=== PATIENT | female | born 1960 | race Caucasian/White ===

== ENCOUNTER → 2017-08-08 | Outpatient (CLI) | payer OTHER ==
[~2017-08-08] MED LIST: CALC500C70 PO
== END | disposition home or self-care (01) ==
LOC: C.RDSM 12:28
PROVIDERS: ATTEND Orthopaedic Surgery Sports Medicine
DX: M25.511 Pain in right shoulder (principal)

== ENCOUNTER → 2017-09-12 | Outpatient (CLI) | payer OTHER ==
[~2017-09-12] MED LIST changes: +AMOX500T PO; +NIAC500T11 PO; +PREDNISONE
[2017-09-12 12:29] LABS: HEMATOCRIT 39.7 % (37-47); MEAN CELL VOLUME 84.6 fL (80-100); MEAN CORPUSCULAR HEMOGLOBIN 28.6 pg (25-34); MEAN CORPUSCULAR HGB CONC 33.8 g/dl (32-36); MEAN PLATELET VOLUME 9.7 fL (7.4-10.4); PLATELET COUNT 270 K/uL (130-400); RED BLOOD COUNT 4.69 M/uL (4.2-5.4); WHITE BLOOD COUNT 5.24 K/uL (4.8-10.8)
== END | disposition home or self-care (01) ==
LOC: C.CPL 11:39
PROVIDERS: ATTEND Orthopaedic Surgery Sports Medicine
DX: Z01.818 Encounter for other preprocedural examination (principal)

== ENCOUNTER 2017-10-03 06:39 | Day surgery (SDC) | payer OTHER ==
--- NOTE | 2017-09-12 12:42 | History and Physical ---
History & Physical Date Sep 12, 2017. Chief Complaint right shoulder pain History of Present Illness The patient is a 57 year old female with complaints of right shoulder pain that has failed conservative treatment. Reports pain making it difficult to perform certain ADL's and elective activity. No new injury or fall since initial evaluation. Denies numbness or tingling in the right upper extremity. Past Medical/Surgical History Past medical history: 1. No currently treatable pathology Past surgical history: 1. x 3 Family history: 1. Non-contributory Social History: 1. Lives at home with family in a safe environment, denies ETOH, tobacco, illegal drug use Additional History Hepatic Disease: No Endocrine Disorder: No Kidney Disease: No Hypertension: No Heart Disease: No Bleeding Tendencies: No Infectious Diseases: No Other: Review of systems: Denies headache, chest pain, shortness of breath, fevers, chills night sweats. Reports being on oral antibiotics regarding sinusitis, which will be compete prior her surgical date. Allergies Coded Allergies: No Known Allergies (Unverified , 10/16/15) Home Medications Scheduled Calcium/Vitamin D (Os-Hay 500 Plus D), 1 TAB PO QPM Physical Examination Skin: warm/dry, no rash Eyes: normal inspection ENT: normal ENT inspection Head: normocephalic, atraumatic Respiratory/Chest: lungs clear, normal breath sounds, no respiratory distress Cardiovascular: regular rate, rhythm, no edema, no murmur Abdomen / GI: normal bowel sounds, non tender Extremities: normal inspection, + pertinent finding (pain with range of motion greater than 120 degrees of elevation, 170 degrees max forward elevation and abduction, + Msocoso test, tender LHB, pain with Juanita's but no weakness, AC joint non-tender, External rotation 45 degrees, elbow atraumatic ) Neurologic/Psych: no motor/sensory deficits, alert, oriented x 3 Diagnosis Right shoulder calcific tendinosis Plan of Treatment Debby will undergo a Right shoulder arthroscopy, possible rotator cuff and labral repairs versus debridement, subacromial decompression, exam under anesthesia by Dr. White from [facility] on 10/03/17 at the [facility]. She was given Percocet for post-op pain. Pre-op labs will include EKG and CBC at the outpatient lab [facility]. PT begins 2 days after surgery and will see Dr. White 2 weeks after surgery for suture removal. Any other questions please call [facility] at [phone], thank you.
[2017-09-14 16:14] VITALS: BMI 27.0
[2017-09-14 16:20] VITALS: Ht 167.6 cm; Wt 76.4 kg
[~2017-10-03] VITALS: Ht 167.6 cm; Wt 76.4 kg
[~2017-10-03 06:39] MED LIST changes: +CEFAZOLIN 1000MG IV PUSH 5 ML IV SCH; +LACTATED RINGER'S 1000ML 1,000 ML IV SCH; +LACTATED RINGER'S 1000ML IV SCH
[2017-10-03] MEDS ORDERED: MIDAZOLAM HCL 1 MG/ML 2ML VIAL ONE (06:50)
[2017-10-03] MEDS ORDERED: PROPOFOL IV EMULSION 10 MG/ML 20 ML VIAL IV ONE (06:50)
[2017-10-03] MEDS ORDERED: FENTANYL CITRATE INJ 50 MCG/1 ML 2 ML VIAL ONE (06:50)
[2017-10-03] MEDS ORDERED: DEXAMETHASONE SOD INJ 4 MG/ML VIAL ONE (06:51)
[2017-10-03] MEDS ORDERED: ONDANSETRON INJ 2 MG/ML 2 ML VIAL ONE (06:51)
[2017-10-03] MEDS ORDERED: LIDOCAINE HCL 2% 2 ML VIAL (20MG/ML) ONE (06:51)
[2017-10-03] MEDS ORDERED: BUPIVACAINE 0.25% 30 ML VIAL ONE (07:20)
[2017-10-03] MEDS ORDERED: ROPIVACAINE 0.5% 5 MG/ML 30 ML VIAL ONE (07:20)
[2017-10-03] MEDS ORDERED: CLONIDINE HCL 100 MCG/ML SYRINGE ONE (07:21)
[2017-10-03] MEDS ORDERED: EpINEphrine INJ 1MG/ML AMP 1 MG/ML AMP ONE (07:21)
[2017-10-03 07:22] VITALS: BP 124/89; PULSE 95; TEMP 36.8; O2SAT 97
[2017-10-03] MEDS ORDERED: LIDOCAINE/EPINEPHRINE 1% 20 ML VIAL ONE (07:33)
[2017-10-03] MEDS ORDERED: SODIUM CHLORIDE 0.9% PF 50 ML VIAL ONE (07:33)
[2017-10-03] MEDS ORDERED: BUPIVACAINE 0.5 % 5 MG/1 ML MPF 30ML VIAL ONE (07:34)
--- NOTE | 2017-10-03 07:46 | History & Physical Bridge Note ---
H&P Re-Evaluation Bridge Note: I have examined the patient, reviewed the History & Physical and in the interval since the performance of the History & Physical I have noted the following changes of clinical significance: No changes noted
[2017-10-03] MEDS ORDERED: LABETALOL HCL IV 5 MG/ML 20ML IV PRN (08:00)
[2017-10-03] MEDS ORDERED: ONDANSETRON INJ 2 MG/ML 2 ML VIAL IV PRN ×2 (08:00→11:45)
[2017-10-03] MEDS ORDERED: PHENYLEPHRINE 100MCG/ML 5ML SYR IV PRN (08:00)
[2017-10-03] MEDS ORDERED: EpHEDrine SULFATE INJ 50 MG/ML AMP IV PRN (08:00)
[2017-10-03] MEDS ORDERED: MEPERIDINE HCL 25 MG/ML CARP IV PRN (08:00)
[2017-10-03] MEDS ORDERED: NALOXONE HCL 0.4 MG/1 ML VIAL/CARP IV PRN (08:00)
[2017-10-03] MEDS ORDERED: FLUMAZENIL 0.1 MG/1 ML 10 ML VIAL IV PRN (08:00)
[2017-10-03] MEDS ORDERED: FENTANYL CITRATE INJ 50 MCG/1 ML 2 ML VIAL IV PRN (08:00)
[2017-10-03] MEDS ORDERED: ATROPINE SULFATE 0.1 MG/ML 5ML SYR IV PRN (08:00)
[2017-10-03] MEDS ORDERED: HYDROmorphone INJ 2 MG/ML SYR/VIAL IV PRN (08:00)
[2017-10-03] MEDS ORDERED: EpHEDrine SULFATE INJ 50 MG/ML AMP ONE (08:58)
[2017-10-03] MEDS: EpINEphrine HCL INJ 1 MG/ML 5ML SYRINGE ONE ×2 (09:53→11:04)
[2017-10-03] MEDS ORDERED: EpINEphrine HCL INJ 1 MG/ML 5ML SYRINGE ONE (10:39)
[2017-10-03] MEDS ORDERED: KETOROLAC TROMETHAMINE 30 MG/ML VIAL ONE (11:29)
--- NOTE | 2017-10-03 11:32 | [facility] Post Operative Brief Note ---
Immediate Operative Summary Operative Date Oct 03, 2017. Pre-Operative Diagnosis Right Shoulder Calcific Tendonosis Post-Operative Diagnosis Same as preop, rotator cuff tear, tendinosis of the long head of the biceps, subacromial bursitis, labral degeneration Procedure(s) Performed 1)Right shoulder arthroscopy, rotator cuff repair. 2)extensive debridement. 3)long head biceps tenotomy 4)exam under anesthesia Surgeon Dr. White Equipment Records Supervisor Surgeon(s) Saurav Randall PA-C Estimated Blood Loss 5 Findings Rotator cuff tear, subacromial bursitis, tendinosis of the long head of the biceps, calcific tendinosis, labral degeneration Fluids (cc crystalloids) 1200 Specimens None per Surgeon Drains none Complication(s) None Disposition Recovery Room / PACU
[2017-10-03] MEDS ORDERED: OXYCODONE/ACETAMINOPHEN 5-325 TAB PO PRN (11:45)
[2017-10-03] MEDS ORDERED: MoRPHine SULFATE 2 MG/ML CARP IV PRN (11:45)
[2017-10-03] MEDS ORDERED: MoRPHine SULFATE 4 MG/ML 1 ML CARP\\VIAL IV PRN (11:45)
--- NOTE | 2017-10-03 11:55 | Discharge Instructions ---
Discharge Instructions Date of Service Oct 03, 2017. Admission Reason for Admission: Right Shoulder Calcific Tendonosis Discharge Discharge Diagnosis / Problem: Right shoulder arthroscopy, extensive debridement, biceps tenotomy, rotator Discharge Goals Goal(s): Decrease discomfort, Improve function, Increase independence, Improve disease control Activity Recommendations Activity Limitations: as noted below Lifting Limitations: until after follow-up appointment Exercise/Sports Limitations: until after follow-up appointment Shower/Bathe: keep incision dry Driving or Machine Use: No driving until cleared by Dr. White . Instructions / Follow-Up Instructions / Follow-Up The following are instructions to follow after "Shoulder Surgery" including, Acromioplasty and Rotator Cuff Repair ACTIVITY RECOMMENDATIONS: * Minimize activity after surgery. * No excessive walking, jogging, sports or laboring. * Return to activity is individualized depending on the patient and type of surgery. * Driving is not permitted until at least your first post operative visit. Please ask your doctor when it is safe to resume driving. * Expect increased discomfort with increased activity. Continue to ice the shoulder as needed. SCHOOL/WORK RECOMMENDATIONS: * You may return to sedentary work or school when you are feeling more comfortable. This is usually 3-7 days after surgery. MEDICATIONS: * You will have a prescription for pain medication after surgery. * Use the pain medication for severe pain and the anti-inflammatory for less severe pain. Once the pain medication has run out, try to use the anti-inflammatory medication. If this is not effective, contact the office for assistance. * The pain medication may cause nausea, constipation and drowsiness. You should see how they affect you before driving or similar activity. * The anti-inflammatory medication may cause stomach upset and bleeding. If this occurs let your doctor know immediately . * Take a stool softener like Colace or a laxative like Senokot to prevent constipation. DIET: * Resume previous diet. SPECIAL CARE: ICE: You have the option of gel packs or ice bags. * Do not apply ice directly to the skin. Use a thin dressing or gal shirt between the skin and ice bag. Apply ice for 20-30 minutes and repeat every 2-4 hours. This is especially important for the first 7-10 days after surgery. Once the pain improves, use ice as needed. ELEVATION: * You may be more comfortable sleeping in an upright position. Use the sling to elevate your arm. DRESSING: * Your dressing will be changed at your first therapy appointment approximately 4-5 days after surgery. Band-aids, tape strips or gauze may be applied. You may then change your dressing daily. * Reapply dressing followed by the sling. * Always wash your hands prior to touching the incision area. * Once the stitches are removed, you may leave the wound open to air or cover with gauze. * Expect some bloody drainage for the first few days after surgery. * Leave the tape strips, if present, in place for 5-7 days. * Band-aids and gauze may be changed daily. * There may be a gauze pad in your armpit area. This can be changed daily or replaced by a dry washcloth. SLING/BRACE: * You will need to use a sling or brace after surgery. The length of time the sling is used is dependent upon the type of surgery performed. * Arthroscopic Acromioplasty requires use of the sling for 2-4 weeks for comfort. * Rotator Cuff Repairs require use of the sling for a longer period of time. Please check with your doctor prior to discontinuing the sling. BATHING: * You may shower or sponge-bathe immediately after surgery. The post operative shoulder dressing is mostly water-tight. You may shower right over this dressing, but be reasonably careful not to get the gauze or incision wet. * Once the dressing has been changed on the fourth or fifth day after surgery, you may shower and get the incision wet. * Wash with regular soap and water. * Do not bathe (submerge the incision), soak, swim or use a hot tub until the incision is completely healed over with normal skin and the doctor has given the OK to proceed. * There is no need to apply any ointments, powders or salves to your incision. * Do not apply alcohol or hydrogen peroxide directly to the incision. * Diluted peroxide (50:50 mixture with sterile saline) may be used to clean dried blood from around the incision area. THERAPY: * You will begin therapy four or five days after surgery. * Organized therapy with the therapist is important for the first 2-4 months after surgery depending on the type of procedure. During that time you will attend therapy 1-3 times per week. * You will also need to do daily exercises for range of motion and strength as instructed. * Patients having Rotator Cuff Surgery are not allowed to actively lift their arms until 4-6 weeks after surgery. * Please check with your doctor regarding appropriate motion restrictions. FOLLOW UP VISIT: * If not already scheduled, please call the office at to schedule a follow-up appointment for 10 days after surgery and monthly thereafter. Current Hospital Diet Patient's current hospital diet: Regular Diet Discharge Diet Recommended Diet: Regular Diet Procedures Procedures Performed: 1)Right shoulder arthroscopy, rotator cuff repair. 2)extensive debridement. 3)long head biceps tenotomy 4)exam under anesthesia Pending Studies Studies pending at discharge: no Medical Emergencies . Who to Call and When: Medical Emergencies: If at any time you feel your situation is an emergency, please call 911 immediately. . Non-Emergent Contact Non-Emergency issues call your: Primary Care Provider, Surgeon Call Non-Emergent contact if: temperature is above 101, wound has increased drainage, wound has increased redness, wound has increased pain, you have any medication questions . "Provider Documentation" section prepared by Saurav Richardson PA-C. . VTE Core Measure Inpt VTE Proph given/why not?: [facility] Drug Monitoring Program Search Results: no issues identified
--- NOTE | 2017-10-03 11:58 | [facility] Operative Report ---
Operative Report Operative Date Oct 03, 2017. Pre-Operative Diagnosis Right Shoulder Calcific Tendonosis Post-Operative Diagnosis Same as preop, rotator cuff tear, tendinosis of the long head of the biceps, subacromial bursitis, labral degeneration Procedure(s) Performed 1)Right shoulder arthroscopy, rotator cuff repair. 2)extensive debridement. 3)long head biceps tenotomy 4)exam under anesthesia Surgeon Dr. White Mushroom Cutter Surgeon(s) Saurav Randall PA-C Estimated Blood Loss 5 Findings Right shoulder calcific tendinopathy, rotator cuff tear, bursitis, biceps tendinosis, labral degeneration Fluids 1200 Specimens None per Surgeon Drains none Anesthesia regional block, general anesthesia Complication(s) None Disposition Recovery Room / PACU Indications This 57-year-old white female presented to the office with complaints of right shoulder pain. She had tried conservative care measures without improvement. She elected to proceed with surgical intervention after being educated about potential risks and outcomes. Description of Procedure Patient was administered a regional block and then taken to the operating room where she was given general anesthesia. She was prepped and draped in usual sterile fashion. Please see Dr. White's operative report for specifics of the procedure. I was present for the entire case from initial patient positioning through final wound closure. Assistance was provided in patient positioning, arthroscopy, and hardware placement. Patient was taken to the recovery room in satisfactory condition. I attest to the content of the Intraoperative Record and any orders documented therein. Any exceptions are noted below.
--- NOTE | 2017-10-03 12:31 | Anesthesiology Progress Note ---
Anesthesia Post Op Note Date & Time Oct 03, 2017 at 12:31 Vital Signs Pain Intensity: 0 Vital Signs Past 12 Hours Date Time Temp Pulse Resp B/P (MAP) Pulse Ox O2 Delivery O2 Flow Rate FiO2 10/03/17 12:25 36.3 74 16 115/78 97 Room Air 10/03/17 12:15 74 16 109/69 100 Oxymask 3 10/03/17 12:05 72 15 114/70 100 Oxymask 10 10/03/17 11:55 71 14 104/69 97 Oxymask 10 10/03/17 11:48 36.2 73 16 106/71 97 Oxymask 10 10/03/17 07:22 36.8 95 18 124/89 (101) 97 Room Air Notes Mental Status: alert / awake / arousable, participated in evaluation Pt Amnestic to Procedure: Yes Nausea / Vomiting: adequately controlled Pain: adequately controlled Airway Patency, RR, SpO2: stable & adequate BP & HR: stable & adequate Hydration State: stable & adequate Anesthetic Complications: no major complications apparent
[2017-10-03 12:40] VITALS: BP 105/69; PULSE 73; TEMP 36.4; O2SAT 92
[2017-10-03 13:10] VITALS: BP 118/70; PULSE 68; O2SAT 92
[2017-10-03 13:40] VITALS: BP 112/66; PULSE 76; TEMP 36.4; O2SAT 93
[2017-10-03 14:20] VITALS: BP 112/66; PULSE 73; TEMP 36.7; O2SAT 93
--- NOTE | 2017-10-03 14:36 | [facility] Operative Report ---
Operative Report Operative Date Oct 03, 2017. Pre-Operative Diagnosis Right Shoulder Calcific Tendonosis Post-Operative Diagnosis Same as preop, rotator cuff tear, tendinosis of the long head of the biceps, subacromial bursitis, labral degeneration Procedure(s) Performed 1) Right shoulder arthroscopy, rotator cuff repair. 2) Extensive debridement. 3) Long head biceps tenotomy. 4) Exam under anesthesia. Surgeon Dr. White Chamber Walker Surgeon(s) Saurav Randall PA-C Estimated Blood Loss 5 Findings The Right shoulder was then examined under anesthesia and it exhibited: Forward flexion and abduction to 170; external rotation 100; internal rotation 60. There was no noted instability. Posterior and anterior translation was 1+ and they had no sulcus sign and was symmetric to their other side. The diagnostic arthroscopy commenced with the following findings: 1. The biceps anchor showed signs of fraying, but well attached, type I SLAP tear. There also was scarring of the posterior aspect of the superior labrum to the capsule. 2. The anterior labrum showed signs of fraying from 1:00 to 3:00, but was well attached. 3. The inferior labrum was intact for the most part. 4. The inferior pouch showed no loose bodies. 5. The posterior labrum was intact inferiorly, there was fraying from 9:00 to 11:00. 6. The articular surface of the glenoid had some central degeneration, grade 2. 7. The articular surface of humeral head was intact. 8. The long Head of the Biceps was scarred into the capsule and rotator cuff. There was significant tendinosis at the attachment to the labrum. 9. The Subscapularis tendon was intact. There was some synovitis. 10. The Supraspinatus tendon had fraying at the articular footprint approximately a third of the thickness. Bursal side, there was approximately 7.5 mm area of thinning with evidence of tendinosis. 11. The Infraspinatus and Teres Minor were intact. Right at the margin with the supraspinatus, there was evidence of the calcific tendinosis. 12. The Subacromial space showed evidence of bursitis and the calcific tendinosis, impingement without bony spur. Fluids 1200 Specimens None per Surgeon Drains none Anesthesia regional block, general anesthesia Complication(s) None Disposition Recovery Room / PACU Indications This is a pleasant 57-year-old male who has been having long-standing right shoulder pain that has failed conservative management. They have MRI and clinical findings suggestive of right shoulder calcific tendinosis, long head of biceps tendinosis, and impingement. After a lengthy discussion regarding their options of conservative versus operative management, they have elected to proceed with surgery. The risks of surgery were discussed and include but not limited to: Infection, bleeding, nerve damage, continued pain, progression of arthritis, stiffness, decreased level of activity, and deep vein thrombosis. The patient understood all of their options and the risks of surgery and would like to proceed. The informed consent was signed. Description of Procedure The patient was taken to the operating room and following administration of her interscalene nerve block and general anesthetic, a multidisciplinary time-out was performed identifying my initials on the right shoulder as the correct and operative limb. The patient was then placed in beach chair position with all of their bony prominences well-padded. They were then prepped and draped in the usual orthopedic sterile fashion. All of the bony landmarks were marked as well as the planned incisions. The planned incisions were injected with a 50:50 mixture of 0.5% Marcaine plain and 1% Lidocaine with Epinephrine for a total of 8 cc. Then using a spinal needle which was placed intra-articularly into the glenohumeral joint and insufflated to 35 cc and there was noted appropriate back flow, an additional 15 cc were placed. The standard posterior portal was made with an 11-blade. Trocar was introduced into the glenohumeral joint in the standard fashion. Using a spinal needle, the anterior portal was placed lateral to the coracoid under direct visualization between the Long Head of the Biceps and Subscapularis. A 7mm cannula was then placed. The intra-articular portion of shoulder was addressed first with debriding any fraying from the labrum and supraspinatus tear with a chemical shaver. These were probed and found to be intact. The long head of the biceps had significant synovitis and scarring to the rotator cuff and capsule. It was freed with a combination of blunt dissection, mechanical shaver, and Lincoln. The attachment to the biceps anchor appeared severely damaged and it was decided to perform a tenotomy. The long head of biceps remained within the bicipital groove. At that point was also noted that the superior labrum was scarred into the capsule and was partially released posteriorly. The arthroscope had also been removed from the posterior portal and placed anteriorly for better posterior visualization. The arthroscope was then placed subacromially. There was significant bursitis noted. A lateral portal was created under direct visualization with a spinal needle, it was later enlarged to allow for digital palpation of the rotator cuff and to identify the calcific tendinosis. Once the bursitis was removed, the bursal side of the rotator cuff was evaluated and again there was a small high-grade partial tear of the supraspinatus. Some of the remaining fibers within the tear were released and cleaned with mechanical shaver. The footprint of the rotator cuff was prepared with a mechanical shaver creating a bleeding surface to allow for healing of the supraspinatus. A 4.75 mm SwiveLock was placed with the FiberTapes passed through the most anterior and posterior aspect of the supraspinatus separately. The humeral head was no longer visible. Prior to preforming the rotator cuff repair, the calcification within the rotator cuff tendon was identified and was removed with a combination of mechanical shaver, and blunt dissection. The infraspinatus and supraspinatus were mostly involved, but its attachment to the humeral head was intact and no further repair was needed. All of the instruments were removed. The portal sites were closed with 3-0 Prolene in a standard fashion. Xeroform was placed overtop followed by 4 x 4's, ABDs, and foam tape. The patient was placed in a sling. The sponge and needle counts were correct. POSTOPERATIVE INSTRUCTIONS: The patient will follow-up with physical therapy in two days. The patient will wear sling out for 4 weeks. The patient will follow- up with me in 10 to 15 days. I attest to the content of the Intraoperative Record and any orders documented therein. Any exceptions are noted below.
[2017-10-03 15:00] VITALS: BP 110/76; PULSE 87; TEMP 36.6; O2SAT 97
== END 2017-10-03 15:53 | disposition home or self-care (01) ==
LOC: C.ACU 06:39
PROVIDERS: ATTEND Orthopaedic Surgery Sports Medicine
DX: M75.101 Unspecified rotator cuff tear or rupture of right shoulder, not specified as traumatic (principal); M75.51 Bursitis of right shoulder; J45.909 Unspecified asthma, uncomplicated